=== PATIENT | female | born 1980 | race Caucasian/White ===

== ENCOUNTER 2016-12-10 07:35 | Inpatient (IN) | payer BC ==
[2016-12-10] MEDS: ELECTROLYTE-148 SOLN 1,000 ML IV SCH (08:00)
[2016-12-10 08:13] VITALS: BMI 37.6
[2016-12-10] MEDS ORDERED: TUBERCULIN PPD 5 TU/0.1ML SYRINGE (IN PATIENT USE ONLY) ID ONE (09:02)
--- NOTE | 2016-12-10 09:08 | HP ---
Past Medical History - Primary Care Physician PCP:: Castro Magana - Admission Chief Complaint: 36 yo P1 wit in breech presentation at EGA 39wks and prior C/S admitted for repeat delivery. 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: No: Alzheimer's, CVA, Dementia, Migraine, Multiple Sclerosis, Peripheral Neuropathy, Parkinson's, Seizure, Syncope, TIA, Vertigo, Other Cardiovascular: No: AFIB, Aneurysm, Aortic Insufficiency, Aortic Stenosis, CAD, CHF, Deep Vein Thrombosis, HTN, Hyperlipdemia, [place], Mitral Insufficiency, Mitral Stenosis, Murmur, Pulmonary Hypertension, Other Pulmonary: No: Asthma, Bronchitis, Cancer, COPD, O2 Dependent, Pneumonia, Previously Intubated, Pulmonary Embolus, Pulmonary Fibrosis, Sleep Apnea, Other Gastrointestinal: No: Ascites, Cancer, Constipation, Crohn's Disease, Diverticulitis, Diverticulosis, Esophageal Varices, Gastritis, GERD, GI Bleed, Hemorrhoids, Hiatal Hernia, Inflamatory Bowel Disease, Irritable Bowel Disease, Pancreatitis, Peptic Ulcer Disease, Ulcerative Colitis, Other Hepatobiliary: No: Cirrhosis, Cholelithiasis, Cholecystitis, Choledocholithiasis , Hepatitis A, Hepatitis B, Hepatitis C, Other Renal/: No: Renal Failure, Renal Inusuff, BPH, Cancer, Hematuria, Hemodialysis , Neurogenic Bladder, Renal Calculi, UTI, Other Reproductive: No: Ectopic , Endometriosis, Fibroids, PID, Polycystic Ovary Syndrome, Postmenopausal, Other ...: 4 ...Para: 1 ...Spon : 2 ...EDC by Rom: 12/15/16 Heme/Onc: Yes: Anemia Infectious Disease: No: AIDS, C-Diff, Herpes Zoster, HIV, MRSA, STD's, Tuberculosis, VREF, Other Psych: No: Addictions, Anxiety, Bipolar, Depression, Panic, Psychosis, Schizophrenia, Other Musculoskeletal: No: Bursitis, Chronic low back pain, Hemiparesis, Hemiplegia, Osteoarthritis, Paraplegia, Other Rheumatology: No: Fibromyalgia, Gout, Lupus, Rheumatoid Arthritis, Sarcoidosis, Vasculitis, Other ENT: No: Allergic Rhinitis, Sinusitis, Other Endocrine: No: Denver's Disease, Maren[place]'s Disease, Diabetes Insipidus, Diabetes Mellitus, Hyperparathyroidism, Hyperthyroidism, Hypothyroidism, Osteopenia, SIADH, Other Dermatology: No: Basal Cell, Cellulitis, Eczema, Melanoma, Psoriasis, Squamous Cell, Other - Past Surgical History Past Surgical History: Yes: Hx Myomectomy: No Hx Transabdominal Cerclage: No - Smoking History Smoking history: Never smoked Have you smoked in the past 12 months: No - Alcohol/Substance Use Hx Alcohol Use: No History of Substance Use: reports: None - Social History Usual Living Arrangement: Yes: With Spouse ADL: Independent 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 History of Recent Travel: No Home Medications - Allergies Allergies/Adverse Reactions: Allergies Allergy/AdvReac Type Severity Reaction Status Date / Time No Known Allergies Allergy Verified 12/01/16 13:29 - Home Medications Home Medications: Ambulatory Orders Vit No.130/Iron/FA [ Vitamins] 1 each PO DAILY 10/16/16 Family Disease History - Family Disease History Family History: Denies Review of Systems Findings/Remarks: Well appearing - Review of Systems Constitutional: reports: No Symptoms Eyes: reports: No Symptoms HENT: reports: No Symptoms Neck: reports: No Symptoms Cardiovascular: reports: No Symptoms Respiratory: reports: No Symptoms Gastrointestinal: reports: No Symptoms Genitourinary: reports: No Symptoms Breasts: reports: No Symptoms Reported Musculoskeletal: reports: No Symptoms Integumentary: reports: No Symptoms Neurological: reports: No Symptoms Endocrine: reports: No Symptoms Hematology/Lymphatic: reports: No Symptoms Psychiatric: reports: No Symptoms Pain Intensity: 0 Physical Exam - Maternity Vital Signs: Vital Signs Temperature 98.3 F 12/10/16 08:04 Pulse Rate 90 12/10/16 08:04 Respiratory Rate 20 12/10/16 08:04 Blood Pressure 121/63 12/10/16 08:04 O2 Sat by Pulse Oximetry (%) Constitutional: Yes: Well Nourished, No Distress, Calm Eyes: Yes: WNL, Conjunctiva Clear HENT: Yes: WNL, Atraumatic, Normocephalic Neck: Yes: WNL, Supple, Trachea Midline Cardiovascular: Yes: WNL, Regular Rate and Rhythm Lungs: Clear to auscultation, Normal air movement - Abdominal Exam/OB Fundal Height: 40 Number of Fetuses: Single Presentation: Breech Contractions: No Monitor Mode: External Heart Rate (range): 150 Category: I Accelerations: Non-Uniform Decelerations: None - Vaginal Exam/OB Vaginal Bleediing: No Speculum Exam: No Amniotic Fluid: Yes: Clear Presentation: Vertex/Position - Physical Exam Musculoskeletal: Yes: WNL Extremities: Yes: WNL Edema: LLE: Trace, RLE: Trace Integumentary: Yes: WNL Deep Tendon Reflex Grade: Normal +2 ...Motor Strength: WNL Psychiatric: Yes: WNL, Alert, Oriented Hemorrhage Risk Assessment - Risk Factors Medium Risk Factors: Yes: Prior , uterine surgery,or multiple laparotomies High Risk Factors: Yes: None Risk Score: 1 Risk Level: Medium Risk Imaging - Results Ultrasound: Report Reviewed Assessment/Plan 36 yo P1 wit in breech presentation at EGA 39wks and prior C/S admitted for repeat delivery. We had a long discussion about risks, benefits, alternatives of surgery. The risks of infection, bleeding, injury to underlying organs/structures explained. The pt verbalized her understanding.
[2016-12-10] MEDS ORDERED: morphine SULFATE/Preservative Free 0.5 MG/ML (1cc Syringe) SPIN ONE (09:13)
[2016-12-10] MEDS: OXYTOCIN 20 UNITS in 0.9% NS 1,000 ML IV SCH ×2 (09:40→23:00)
[2016-12-10] MEDS ORDERED: IBUPROFEN 600 MG TABLET (FP) PO PRN (09:46)
[2016-12-10] MEDS ORDERED: oxyCODONE HCL 5 MG TABLET PO PRN ×2 (10:13)
[2016-12-10] MEDS ORDERED: IBUPROFEN 800 MG/8 ML IJ IVPB PRN (10:13)
[2016-12-10] MEDS ORDERED: METHYLERGONOVINE MALEATE 0.2 MG/1 ML AMP IM PRN (10:13)
--- NOTE | 2016-12-10 10:49 | OP ---
Operative Note - Note: Operative Date: 12/10/16 Pre-Operative Diagnosis: at EGA 39wk. Repeat LT C/S Operation: Repeat LT C/S Findings: Live baby girl in vtx presentation. No meconium in amniotic fluid. 9/9 Post-Operative Diagnosis: Same as Pre-op Surgeon: Castro Magana Knitting Machine Operator Automatic: Lisa Alcazar Anesthesiologist/FOLDER GLUER OPERATOR: Srinivas Adams Anesthesia: Spinal Specimens Removed: Placenta Estimated Blood Loss (mls): 700 Drains & Tubes with Location: Ricardo cath Drains, Volume Out (mls): 200 Blood Volume Replaced (mls): 0 Fluid Volume Replaced (mls): 1,200 Operative Report Dictated: Yes
[2016-12-10] MEDS: ONDANSETRON 4 MG/2 ML VIAL IVPB PRN ×2 (12:06→17:13)
[2016-12-10] MEDS: CEFAZOLIN 1 GM/D5W 50 ML IVPB SCH ×2 (12:38→17:51)
[2016-12-10] MEDS: CEFAZOLIN (PRE-DOCKED) 50 ML IVPB SCH (17:54)
[2016-12-11] MEDS: CEFAZOLIN (PRE-DOCKED) 50 ML IVPB SCH ×2 (02:00→09:01)
--- NOTE | 2016-12-11 04:05 | OP ---
DATE OF OPERATION: 12/10/2016 DICTATON: 12/10/2016 PROCEDURE: Repeat low transverse section via Pfannenstiel skin incision. PREOPERATIVE DIAGNOSIS: 1. with estimated gestational age of 39 weeks. 2. Previous section. Patient declined . POSTOPERATVE DIAGNOSIS: 1. with estimated gestational age of 39 weeks. 2. Previous section. Patient declined . SURGEON: Castro Magana MD HANDBAG DESIGNER: Lisa Alcazar MD ANESTHESIOLOGIST: Srinivas Adams MD ANESTHESIA: Spinal. COMPLICATIONS: None. ESTIMATED BLOOD LOSS: 700 mL. URINE OUTPUT: 200 mL of clear urine at the end of the procedure. IV FLUIDS: 1200 mL. PATHOLOGY: Placenta. COMPLICATIONS: None. FINDINGS: Live baby girl in vertex presentation. No meconium in amniotic fluids. Normal uterus, fallopian tubes and ovaries. is 9 and 9. PROCEDURE: The patient was met preoperatively. Risks, benefits and alternatives of surgery were discussed in details. All questions were answered. The patient was brought to the OR with the IV running. She was placed on the surgical table in a sitting position. The spinal anesthesia was achieved without difficulty. The patient was then placed in a supine position with a leftward tilt. A Ricardo catheter was inserted and left to drain to gravity. The patient was prepped and draped in the usual sterile fashion. A Pfannenstiel incision was made with a knife along her prior scar. The incision was carried down to the level of fascia. The fascia was incised in the midline. The incision was extended bilaterally using Rivera scissors. The fascia was dissected away from the rectus muscles superiorly and inferiorly. The rectus muscles were in the midline. The peritoneum was identified and entered sharply. The peritoneal incision was then extended superiorly and inferiorly. The bladder was dissected away from the lower uterine segment using sharp dissection. The bladder was reflected downward. The uterus was incised transversely in the lower uterine segment. The incision was extended bilaterally using bandage scissors. The baby was delivered from vertex presentation without complications. There was no meconium in the amniotic fluids. The umbilical cord was clamped and cut. The baby was crying spontaneously and handed to the awaiting clinical nursing intern. The placenta was delivered manually without complications. The uterus was exteriorized and cleared of all clots and debris. The uterine incision was repaired using a 0 Biosyn suture with a running/locking stitch. Good hemostasis was noted. The uterus was then returned to the abdominal cavity. The uterine incision was imbricated using a 0 Biosyn suture in a running stitch with good hemostasis. The bladder peritoneum was also approximated. The operative site was irrigated using copious amounts of normal saline. Once the saline was aspirated, good hemostasis was confirmed. The peritoneum was closed using a 2-0 chromic suture. The rectus muscles were approximated in the midline using 2-0 chromic suture. The fascia was closed using a 0 Vicryl suture in a running stitch. The subcutaneous tissues were approximated using several interrupted 2-0 chromic sutures. The skin was closed with a 4-0 Vicryl suture using a subcutaneous stitch. Sponge, lap, needle counts were correct. The patient tolerated the procedure well and was transferred to the recovery room in stable condition. David [id number]
[2016-12-11 08:34] LABS: BASOPHIL 0.5 % (0-2.0); EOSINOPHIL 0.9 % (0-4.5); MCH 29.2 pg (25.7-33.7); MCHC 33.7 g/dl (32.0-36.0); MEAN CELL VOLUME 86.7 fl (80-96); MEAN PLT VOLUME 9.3 fl (7.5-11.1); NEUTROPHILS 83.4 % (42.8-82.8); PLATELET COUNT 154 K/MM3 (134-434); WHITE BLOOD COUNT 10.7 K/mm3 (4.0-10.0)
--- NOTE | 2016-12-11 08:53 | PN ---
Progress Note (short form) - Note Progress Note: Post op day#1.S/P C section under spinal anesthesia with duramorph uneventful.Patient stable and c/o little pain for which she is on medication.No any anesthesia related problem.Patient DC from the anesthesia care.
[2016-12-11] MEDS ORDERED: BISACODYL 10 MG SUPP.RECT RC PRN (10:14)
[2016-12-11] MEDS: ENOXAPARIN NA (PORCINE) 40 MG/0.4 ML DISP.SYRIN SQ SCH (10:49)
[2016-12-11] MEDS: ACETAMINOPHEN 325 MG TABLET (FP) PO PRN ×2 (11:55→20:16)
[2016-12-11] MEDS: IBUPROFEN 600 MG TABLET (FP) PO PRN ×2 (11:56→20:22)
[2016-12-11] MEDS: SIMETHICONE 80 MG TAB.CHEW (FP) PO PRN ×2 (11:56→20:16)
--- NOTE | 2016-12-11 12:14 | PN ---
Post Progress Note - Subjective Subjective: 36 yo P 2 now no complains, pain controlled, voided, + flatus, tolerating regular diet Post Day: 1 Type of Delivery: Repeat C/S Vital Signs: Vital Signs Temperature 98.6 F 12/11/16 05:07 Pulse Rate 95 H 12/11/16 05:07 Respiratory Rate 18 12/11/16 05:25 Blood Pressure 114/77 12/11/16 05:07 O2 Sat by Pulse Oximetry (%) Breast Exam: Yes: Soft Uterus: Yes: Fundus Firm Incision: Yes: Dressing dry and intact Abdomen/GI: Yes: Abdomen soft, Passing flatus Lochia: Yes: Rubra Lochia, amount: Small Extremities: Yes: Calves non-tender Activity: Other (sitting in the chair) - Labs Labs: CBC WBC 10.7 K/mm3 (4.0-10.0) H 12/11/16 07:50 RBC 3.07 M/mm3 (3.60-5.2) L 12/11/16 07:50 Hgb 9.0 GM/dL (10.7-15.3) L D 12/11/16 07:50 Hct 26.6 % (32.4-45.2) L D 12/11/16 07:50 MCV 86.7 fl (80-96) 12/11/16 07:50 MCHC 33.7 g/dl (32.0-36.0) 12/11/16 07:50 RDW 14.0 % (11.6-15.6) 12/11/16 07:50 Plt Count 154 K/MM3 (134-434) 12/11/16 07:50 MPV 9.3 fl (7.5-11.1) 12/11/16 07:50 Neutrophils % 83.4 % (42.8-82.8) H 12/11/16 07:50 Lymphocytes % 9.6 % (8-40) D 12/11/16 07:50 Monocytes % 5.6 % (3.8-10.2) 12/11/16 07:50 Eosinophils % 0.9 % (0-4.5) 12/11/16 07:50 Basophils % 0.5 % (0-2.0) 12/11/16 07:50 Assessment/Plan 36 yo P 2, s/p Repeat c/s for breech presentation doing well, VSS, Afibrile Assymptomatic anemia, will follow h/h Baby - female Rh + cont routine care
[2016-12-12] MEDS: ACETAMINOPHEN 325 MG TABLET (FP) PO PRN ×3 (04:39→21:03)
[2016-12-12] MEDS: SIMETHICONE 80 MG TAB.CHEW (FP) PO PRN ×3 (04:39→21:03)
[2016-12-12] MEDS: IBUPROFEN 600 MG TABLET (FP) PO PRN ×3 (04:43→21:02)
[2016-12-12] MEDS: ENOXAPARIN NA (PORCINE) 40 MG/0.4 ML DISP.SYRIN SQ SCH (09:49)
[2016-12-12] MEDS: ELECTROLYTE-148 SOLN 1,000 ML IV SCH (11:31)
--- NOTE | 2016-12-12 14:22 | PN ---
Post Progress Note - Subjective Subjective: Feels better, (+) flatus, No nausea or vomiting. Post Day: 2 Type of Delivery: Repeat C/S Vital Signs: Vital Signs Temperature 98.4 F 12/12/16 10:00 Pulse Rate 83 12/12/16 10:00 Respiratory Rate 18 12/12/16 10:00 Blood Pressure 113/66 12/12/16 10:00 O2 Sat by Pulse Oximetry (%) Breast Exam: Yes: Soft Uterus: Yes: Fundus Firm, Fundus below umbilicus, Non-tender Incision: Yes: Sutures intact Abdomen/GI: Yes: Abdomen soft, Passing flatus, Tolerating PO Lochia: Yes: Rubra Lochia, amount: Small Extremities: Yes: Calves non-tender, Edema (bilat) Perineum: Yes: Intact Activity: Ambulating - Labs Labs: CBC WBC 10.7 K/mm3 (4.0-10.0) H 12/11/16 07:50 RBC 3.07 M/mm3 (3.60-5.2) L 12/11/16 07:50 Hgb 9.0 GM/dL (10.7-15.3) L D 12/11/16 07:50 Hct 26.6 % (32.4-45.2) L D 12/11/16 07:50 MCV 86.7 fl (80-96) 12/11/16 07:50 MCHC 33.7 g/dl (32.0-36.0) 12/11/16 07:50 RDW 14.0 % (11.6-15.6) 12/11/16 07:50 Plt Count 154 K/MM3 (134-434) 12/11/16 07:50 MPV 9.3 fl (7.5-11.1) 12/11/16 07:50 Neutrophils % 83.4 % (42.8-82.8) H 12/11/16 07:50 Lymphocytes % 9.6 % (8-40) D 12/11/16 07:50 Monocytes % 5.6 % (3.8-10.2) 12/11/16 07:50 Eosinophils % 0.9 % (0-4.5) 12/11/16 07:50 Basophils % 0.5 % (0-2.0) 12/11/16 07:50 Assessment/Plan 36 yo P1 s/p repeat LT C/S, doing well stable, afebrile. care instructions reviewed. Continue routine postop care. Ambulation encouraged.
--- NOTE | 2016-12-12 14:26 | DS ---
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 Vital Signs: Vital Signs Temperature 98.4 F 12/12/16 10:00 Pulse Rate 83 12/12/16 10:00 Respiratory Rate 18 12/12/16 10:00 Blood Pressure 113/66 12/12/16 10:00 O2 Sat by Pulse Oximetry (%) Constitutional: Yes: Well Nourished, No Distress, Calm, Obese Eyes: Yes: WNL, Conjunctiva Clear HENT: Yes: WNL, Atraumatic, Normocephalic Neck: Yes: WNL, Supple, Trachea Midline Cardiovascular: Yes: WNL, Regular Rate and Rhythm Respiratory: Yes: WNL, Regular, CTA Bilaterally Gastrointestinal: Yes: WNL Renal/: Yes: WNL External Genitalia: Yes: Normal Internal Exam Deferred: Yes ....Post : Yes: Uterus firm, Uterus non-tender, Slight lochia rubra Breast(s): Yes: WNL Musculoskeletal: Yes: WNL Extremities: Yes: WNL Edema: Yes Edema: LLE: 1+, RLE: 1+ Integumentary: Yes: WNL Wound/Incision: Yes: Clean/Dry, Well Approximated, Sutures Intact Neurological: Yes: WNL, Alert, Oriented ...Motor Strength: WNL Psychiatric: Yes: WNL, Alert, Oriented Labs: CBC, BMP 12/11/16 07:50 Delivery - Delivery Section: Repeat, Low Flap Transverse Type of Anesthesia: Spinal Episiotomy/Laceration: None EBL (cc): 700 Delivery, Single - Stages of Labor Date of Delivery: 12/10/16 Time of Delivery: 09:37 Time Placenta Delivered: 09:38 Placenta: Yes: Manual Removal, Normal Configuration - Condition of Infant Agriculture Science Teacher/Foundry Laborer Coreroom Present: Yes Name: Paty Daniel Infant Gender: Female Weight: 3.912 kg Position: OT Total Hours ROM (Hrs/Mins): 1M - 1 Minute Total Score: 9 5 Minutes Total Score: 9 - [place] Feeding Plan Initial Plan: Elected not to breastfeed exclusively throughout hospitalization Discharge Summary Reason For Visit: C/SECTION Prior section prior IUFD at 32 wks Procedures: Principal: Repeat LT C/S Hospital Course: Normal recovery, Anemia Condition: Good - Instructions Diet, Activity, Other Instructions: Physical activity Resume your normal everyday activity as tolerated no heavy lifting or exercise until seen by your surgeon. You may walk unlimited zari of and climb stairs. You may resume driving the car when you feel safe and comfortable behind the wheel. No sexual activity as instructed. Wound care If you have a bandage, leave it on, and keep dry for 48-72 hours. After that time discard the outer bandage. If they are tapes on the skin under the out of bandage leave them in place. They will peel off in the next 7 to 10 days. Do Not Peel them off. You may shower the day after surgery. If there are tapes present on the skin, you may shower over them. Diet There are no dietary restrictions. Eat healthy, high-fiber foods. Drink 6 to 8 glasses of liquid each day. This will assist in keeping your bowels are regular. Pain management You may take Tylenol or acetaminophen or Ibuprofen (for example, Motrin, Advil etc.) from my pain prescription medication is ordered should be taken as prescribed for moderate to severe pain. Call MD for any of the following: Severe pain not relieved by medication Fever of 101 or higher Excessive bleeding or drainage on dressing Inability to urinate Referrals: Castro Magana MD [Staff Physician] - Disposition: HOME - Home Medications Comprehensive Discharge Medication List: Ambulatory Orders Vit No.130/Iron/FA [ Vitamins] 1 each PO DAILY 10/16/16
[2016-12-13] MEDS: IBUPROFEN 600 MG TABLET (FP) PO PRN ×2 (03:38→09:35)
[2016-12-13] MEDS: SIMETHICONE 80 MG TAB.CHEW (FP) PO PRN (03:38)
[2016-12-13] MEDS: ACETAMINOPHEN 325 MG TABLET (FP) PO PRN ×2 (03:39→09:35)
[2016-12-13 08:47] LABS: BASOPHIL 0.8 % (0-2.0); EOSINOPHIL 3.9 % (0-4.5); MCH 28.6 pg (25.7-33.7); MCHC 32.6 g/dl (32.0-36.0); MEAN CELL VOLUME 87.8 fl (80-96); MEAN PLT VOLUME 8.8 fl (7.5-11.1); NEUTROPHILS 69.8 % (42.8-82.8); PLATELET COUNT 220 K/MM3 (134-434); RDW 14.3 % (11.6-15.6); WHITE BLOOD COUNT 7.7 K/mm3 (4.0-10.0)
--- NOTE | 2016-12-13 08:54 | PN ---
Post Progress Note - Subjective Subjective: Patient without acute complaints. Reports tolerating oral intake without nausea or vomiting. Ambulating without dizziness. Denies fevers or chills. Pain well controlled with oral pain medication. without difficulty. Passing flatus. Post Day: 3 Type of Delivery: Repeat C/S Vital Signs: Vital Signs Temperature 98.5 F 12/12/16 22:00 Pulse Rate 92 H 12/12/16 22:00 Respiratory Rate 18 12/12/16 22:00 Blood Pressure 132/80 12/12/16 22:00 O2 Sat by Pulse Oximetry (%) Breast Exam: Yes: Engorged Uterus: Yes: Fundus Firm Incision: Yes: Sutures intact. No: Redness, Oozing Abdomen/GI: Yes: Abdomen soft, Passing flatus, Tolerating PO. No: Tender Lochia: Yes: Serosa Extremities: No: Edema Activity: Ambulating - Labs Labs: CBC WBC 7.7 K/mm3 (4.0-10.0) 12/13/16 07:45 RBC 3.32 M/mm3 (3.60-5.2) L 12/13/16 07:45 Hgb 9.5 GM/dL (10.7-15.3) L 12/13/16 07:45 Hct 29.1 % (32.4-45.2) L 12/13/16 07:45 MCV 87.8 fl (80-96) 12/13/16 07:45 MCHC 32.6 g/dl (32.0-36.0) 12/13/16 07:45 RDW 14.3 % (11.6-15.6) 12/13/16 07:45 Plt Count 220 K/MM3 (134-434) D 12/13/16 07:45 MPV 8.8 fl (7.5-11.1) 12/13/16 07:45 Neutrophils % 69.8 % (42.8-82.8) 12/13/16 07:45 Lymphocytes % 17.9 % (8-40) D 12/13/16 07:45 Monocytes % 7.6 % (3.8-10.2) 12/13/16 07:45 Eosinophils % 3.9 % (0-4.5) D 12/13/16 07:45 Basophils % 0.8 % (0-2.0) 12/13/16 07:45 Assessment/Plan 36 yo POD #3 s/p repeat delivery, afebrile, vital signs stable, doing well 1. Patient stable for discharge home today. 2. Patient encouraged to contact MD for: - Severe pain not controlled by oral pain medication - Fevers or chills - Nausea or vomiting, intolerance of oral intake - Incision redness, tenderness or discharge 3. Patient to follow up in office in 1-2 weeks for incision check, 4-6 weeks for visit
[2016-12-13 09:30] VITALS: BP 143/75; PULSE 100; TEMP 97.7
[2016-12-13] MEDS: ENOXAPARIN NA (PORCINE) 40 MG/0.4 ML DISP.SYRIN SQ SCH (09:32)
--- NOTE | 2016-12-14 15:43 | PATH ---
Surgical Pathology Report Patient Name: ZANE SANON Med. Rec. #: [id number] /Age/Gender: 1980 (Age: 36) / F Account: [id number] Location: [facility] OBS/HAZARDOUS MATERIALS ANALYST Taken: 12/10/2016 Received: 12/11/2016 Reported: 12/14/2016 Physicians: Castro Magana M.D. Specimen(s) Received PLACENTA Clinical History C/section 2013-intrauterine Repeat c/section Final Diagnosis PLACENTA, DELIVERY: FOCALLY DISRUPTED THIRD TRIMESTER PLACENTA WITH MODERATE PREVILLOUS, PERIVILLOUS, AND PRECHORIONIC FIBRIN DEPOSITION, THREE VESSEL UMBILICAL CORD, AND PLACENTAL MEMBRANES FOCAL ACUTE CHORIOAMNIONITIS. Electronically Signed Villa Horner M.D. Gross Description The specimen is received fresh, labeled "placenta" and is a 506 gram, 22.0 x 16.0 x 1.8 cm placenta with attached membranes and umbilical cord. The attached membranes are michael, translucent with focal opacities and insert marginally. The umbilical cord measures 25 cm in length and averages 1.1 cm in diameter. The cord inserts eccentrically, 2 cm to the nearest margin. No true knots or strictures are identified. Cut surface of the umbilical cord reveals 3 vessels. The surface is holloway-blue with fibrin deposition and appropriate caliber vessels. The maternal surface is red-brown with focal defects. Sectioning reveals red-brown, spongy parenchyma. No focal lesions are identified. Director Patient sections are submitted in three cassettes as follows: 1- membrane rolls and umbilical cord; 2-3- full thickness sections of placenta. /12/13/2016 [facility]12/13/2016
== END 2016-12-13 13:20 | disposition home or self-care (01) | DRG 766 ==
LOC: JLDR 07:35 → J3W 11:48
PROVIDERS: ADMIT Obstetrics & Gynecology; ATTEND Obstetrics & Gynecology
PROC: 10D00Z1 Extraction of Products of Conception, Low, Open Approach (ICD-10-PCS; principal; 2016-12-10)
DX: O34.211 Maternal care for low transverse scar from previous cesarean delivery (principal); O09.523 Supervision of elderly multigravida, third trimester; Z3A.39 39 weeks gestation of pregnancy; Z37.0 Single live birth
CPT/HCPCS: 36415; 85025; 88307-TC